=== PATIENT | female | born 1975 | race Caucasian/White ===

== ENCOUNTER → 2017-03-24 | Outpatient (REF) | payer BC | LOC: M LAB REF 10:11 | PROVIDERS: ATTEND Physician Assistant | DX: N39.0 Urinary tract infection, site not specified (principal) ==

== ENCOUNTER → 2017-07-31 | Outpatient (REF) | payer BC | LOC: M LAB REF 16:32 | PROVIDERS: ATTEND Physician Assistant | DX: R30.0 Dysuria (principal) ==

== ENCOUNTER → 2018-06-14 | Outpatient (REF) | payer BC | LOC: M LAB REF 17:49 | DX: N39.0 Urinary tract infection, site not specified (principal) ==

== ENCOUNTER → 2018-11-01 | Outpatient (CLI) | payer OTHER ==
--- NOTE | 2018-11-01 16:00 | REP ---
PA and lateral chest: There are no comparisons. The lung kline are clear. The cardiac size is normal. The genet, mediastinum, and skeletal structures are unremarkable. Impression: Negative PA and lateral chest. Electronically Signed by Armond Garcia MD 11/01/2018 03:51 P
[2018-11-01 16:35] LABS: BASO % 0.4 % (0.0-1.0); EOS % 0.4 % (0.0-3.0); HEMATOCRIT 39.9 % (36.0-47.0); HEMOGLOBIN 13.7 g/dl (12.0-15.5); LYMPH # 1.6 10^3/uL (1.5-4.5); LYMPH % 15.9 % (24.0-44.0); MEAN CORPUSCULAR HEMOGLOBIN 30.6 pg (27.0-33.0); MEAN CORPUSCULAR HGB CONC 34.3 g/dl (32.0-36.5); MEAN CORPUSCULAR VOLUME 89.1 fl (80.0-96.0); MONO # 0.5 10^3/uL (0.0-0.8); MONO % 5.2 % (0.0-5.0); NEUTROPHILS # 7.6 10^3/uL (1.8-7.7); NEUTROPHILS % 77.9 % (36.0-66.0); PLATELET COUNT, AUTOMATED 362 10^3/uL (150-450); RED BLOOD COUNT 4.48 10^6/uL (4.00-5.40); WHITE BLOOD COUNT 9.8 10^3/uL (4.0-10.0)
[2018-11-01 16:59] LABS: ALBUMIN 4.4 GM/DL (3.2-5.2); ALT/SGPT 20 U/L (12-78); BILIRUBIN,TOTAL 0.4 MG/DL (0.2-1.0); BLOOD UREA NITROGEN 10 MG/DL (7-18); CALCIUM LEVEL 9.1 MG/DL (8.5-10.1); CARBON DIOXIDE LEVEL 27 MEQ/L (21-32); CHLORIDE LEVEL 103 MEQ/L (98-107); CREATININE FOR GFR 0.64 MG/DL (0.55-1.30); FREE T4 1.27 NG/DL (0.76-1.46); GLOMERULAR FILTRATION RATE > 60.0 (>58); GLUCOSE, FASTING 81 MG/DL (70-100); POTASSIUM SERUM 4.1 MEQ/L (3.5-5.1); SODIUM LEVEL 139 MEQ/L (136-145); THYROID STIMULATING HORMONE 0.662 uIU/ML (0.358-3.740); TOTAL PROTEIN 7.2 GM/DL (6.4-8.2); VITAMIN B12 LEVEL 986 PG/ML
[2018-11-01 17:00] LABS: FOLATE 13.9 NG/ML
== END ==
LOC: M WUC 14:58
PROVIDERS: ATTEND Physician Assistant
DX: R42 Dizziness and giddiness (principal); J06.9 Acute upper respiratory infection, unspecified

== ENCOUNTER → 2019-10-23 | Outpatient (CLI) | payer OTHER ==
[~2019-10-23] MED LIST: PROHANCE 279.3MG/ML 15ML VIAL (A9576) As Ordered ONE
--- NOTE | 2019-10-23 13:03 | REPVR ---
PROCEDURE INFORMATION: Exam: MR Head Without and With Contrast Exam date and time: 10/23/2019 12:23 PM Age: 43 years old Clinical indication: Patient HX: Hearing loss worse on lt side; Additional info: Snsrnrl hear loss, uni, left ear, w unrestr hear cntra side TECHNIQUE: Imaging protocol: MR of the head without and with intravenous contrast. 3D rendering: MIP and/or 3D reconstructed images were created by the technologist. Contrast material: PROHANCE; Contrast volume: 14 ml; Contrast route: 22G ANGIO; COMPARISON: No relevant prior studies available. FINDINGS: Brain: Examination of the brain demonstrates normal morphology and signal intensity.No acute infarction, masses, midline shift or acute hemorrhage is seen. No acute intracranial abnormality is identified.There is no abnormal diffusion weighted signal intensity to suggest an acute ischemic event.The cortical chambers / white matter interfaces are preserved throughout the brain.Intracranial flow voids are well maintained.Examination of the posterior fossa demonstrates no significant abnormality.On gradient echo imaging, no susceptibility changes are seen to represent parenchymal calcification or degraded blood products. The seventh and eighth nerve complexes are normal in thickness and signal intensity. No discrete mass or abnormal enhancement is seen to suggest vestibular schwannoma or acoustic neuroma. No abnormal contrast enhancement is seen. Ventricles: The ventricular system is not dilated and is appropriate for the patient's age. Bones/joints: Unremarkable. Soft tissues: Unremarkable. Sinuses: Normal as visualized. No acute sinusitis. Mastoid air cells: Normal as visualized. No mastoid effusion. Orbits: Unremarkable. IMPRESSION: 1. No acute infarction, masses or hemorrhage is seen. No acute intracranial abnormality is identified. 2. The seventh and eighth nerve complexes are normal in thickness and signal intensity. No discrete mass or abnormal enhancement is seen to suggest vestibular schwannoma or acoustic neuroma. 3. No abnormal contrast enhancement is seen. Electronically signed by: Deni Vizcarra On 10/23/2019 13:03:19 PM
== END ==
LOC: M RAD 11:20
PROVIDERS: ATTEND Otolaryngology
DX: H90.42 Sensorineural hearing loss, unilateral, left ear, with unrestricted hearing on the contralateral side (principal)
CPT/HCPCS: 70553; A9576

== ENCOUNTER → 2023-01-24 | Outpatient (CLI) | payer OTHER | LOC: M RAD 14:02 | PROVIDERS: ATTEND Internal Medicine Endocrinology, Diabetes & Metabolism | DX: E05.90 Thyrotoxicosis, unspecified without thyrotoxic crisis or storm (principal) | CPT/HCPCS: 78012; A9516 ==

== ENCOUNTER → 2023-02-05 | Outpatient (CLI) | payer OTHER ==
[2023-02-05 16:28] LABS: FREE T4 6.73 NG/DL (0.89-1.76)
[2023-02-05 16:29] LABS: THYROID STIMULATING HORMONE 0.008 uIU/ML (0.55-4.78)
[2023-02-05 17:07] LABS: TOTAL T3 > 800.0 NG/DL (60.0-181.0)
== END ==
LOC: M PLALAB 12:08
PROVIDERS: ATTEND Internal Medicine Endocrinology, Diabetes & Metabolism
DX: E05.00 Thyrotoxicosis with diffuse goiter without thyrotoxic crisis or storm (principal)

== ENCOUNTER → 2023-02-21 | Outpatient (CLI) | payer OTHER ==
[2023-02-21 16:13] LABS: HCG, SERUM QUALITATIVE NEGATIVE (NEGATIVE)
== END ==
LOC: M LAB 15:12
PROVIDERS: ATTEND Internal Medicine Endocrinology, Diabetes & Metabolism
DX: E05.00 Thyrotoxicosis with diffuse goiter without thyrotoxic crisis or storm (principal)

== ENCOUNTER → 2023-05-04 | Outpatient (REF) | payer OTHER ==
[2023-05-04 19:04] LABS: FREE T4 0.23 NG/DL (0.89-1.76); THYROID STIMULATING HORMONE 16.19 uIU/ML (0.55-4.78)
== END ==
LOC: M PLALAB 17:22
PROVIDERS: ATTEND Internal Medicine Endocrinology, Diabetes & Metabolism
DX: E05.00 Thyrotoxicosis with diffuse goiter without thyrotoxic crisis or storm (principal)

== ENCOUNTER → 2023-07-09 | Outpatient (CLI) | payer OTHER ==
[2023-07-10 00:26] LABS: THYROID STIMULATING HORMONE 0.016 uIU/ML (0.55-4.78)
[2023-07-10 00:28] LABS: FREE T4 1.39 NG/DL (0.89-1.76)
== END ==
LOC: M PLALAB 15:24
PROVIDERS: ATTEND Nurse Practitioner Family
DX: E89.0 Postprocedural hypothyroidism (principal)

== ENCOUNTER → 2023-10-08 | Day surgery (SDC) | payer OTHER ==
[~2023-10-08] VITALS: Ht 154.9 cm; Wt 81.4 kg
[~2023-10-08] MED LIST changes: +ACET-907 PO; +LEVO125T4 PO; +LIDOCAINE 2% 100MG/5ML SDV (FOR ANES.) As Ordered ONE; +METO1TAB87 PO; +NS 1,000 ML IV ONE; +OMEP-173 PO; -PROHANCE 279.3MG/ML 15ML VIAL (A9576) As Ordered ONE; +fentaNYL 100 MCG/2 ML INJECTION As Ordered ONE; +propofoL 500 MG/50 ML VIAL As Ordered ONE
[2023-10-08 14:09] VITALS: BP 133/62; O2SAT 98
== END | disposition home or self-care (01) ==
LOC: M SDC 10:44 → M OPP 10:44
PROVIDERS: ATTEND Internal Medicine Gastroenterology
DX: Z12.11 Encounter for screening for malignant neoplasm of colon (principal); K64.4 Residual hemorrhoidal skin tags; K64.8 Other hemorrhoids; K22.4 Dyskinesia of esophagus; K21.00 Gastro-esophageal reflux disease with esophagitis, without bleeding; K29.70 Gastritis, unspecified, without bleeding; K44.9 Diaphragmatic hernia without obstruction or gangrene; R13.10 Dysphagia, unspecified; Z79.1 Long term (current) use of non-steroidal anti-inflammatories (NSAID); Z79.890 Hormone replacement therapy; Z79.899 Other long term (current) drug therapy; Z88.0 Allergy status to penicillin; Z88.1 Allergy status to other antibiotic agents
CPT/HCPCS: 43239; 45378; 88305; J3010

== ENCOUNTER → 2023-11-12 | Outpatient (CLI) | payer OTHER ==
[~2023-11-12] MED LIST changes: -LIDOCAINE 2% 100MG/5ML SDV (FOR ANES.) As Ordered ONE; -NS 1,000 ML IV ONE; -fentaNYL 100 MCG/2 ML INJECTION As Ordered ONE; -propofoL 500 MG/50 ML VIAL As Ordered ONE
[2023-11-12 18:02] LABS: THYROID STIMULATING HORMONE 0.046 uIU/ML (0.55-4.78)
[2023-11-12 18:03] LABS: FREE T4 1.38 NG/DL (0.89-1.76)
== END ==
LOC: M PLALAB 15:35
PROVIDERS: ATTEND Nurse Practitioner Family
DX: E89.0 Postprocedural hypothyroidism (principal)

== ENCOUNTER → 2024-02-14 | Outpatient (CLI) | payer OTHER ==
[2024-02-14 12:02] LABS: FREE T4 1.34 NG/DL (0.89-1.76)
[2024-02-14 12:03] LABS: THYROID STIMULATING HORMONE 0.249 uIU/ML (0.55-4.78)
== END ==
LOC: M PLALAB 08:37
PROVIDERS: ATTEND Nurse Practitioner Family
DX: E89.0 Postprocedural hypothyroidism (principal)

== ENCOUNTER → 2024-06-30 | Outpatient (CLI) | payer OTHER ==
[2024-06-30 16:44] LABS: FREE T4 1.72 NG/DL (0.89-1.76); THYROID STIMULATING HORMONE 0.31 uIU/ML (0.55-4.78)
== END ==
LOC: M PLALAB 13:02
PROVIDERS: ATTEND Nurse Practitioner Family
DX: E89.0 Postprocedural hypothyroidism (principal)

== ENCOUNTER → 2024-06-30 | Outpatient (CLI) | payer OTHER ==
[2024-06-30 16:13] LABS: BASO # 0.1 10^3/uL (0.0-0.2); BASO % 1.1 % (0.0-1.0); EOS # 0.3 10^3/uL (0.0-0.5); EOS % 4.4 % (0.0-3.0); HEMATOCRIT 32.7 % (36.0-47.0); HEMOGLOBIN 9.8 g/dl (12.0-15.5); LYMPH # 1.7 10^3/uL (1.5-5.0); LYMPH % 23.4 % (24.0-44.0); MEAN CORPUSCULAR HEMOGLOBIN 24.4 pg (27.0-33.0); MEAN CORPUSCULAR VOLUME 81.3 fl (80.0-96.0); MONO # 0.7 10^3/uL (0.0-0.8); MONO % 8.9 % (2.0-8.0); NEUTROPHILS # 4.6 10^3/uL (1.5-8.5); NEUTROPHILS % 61.9 % (36.0-66.0); PLATELET COUNT, AUTOMATED 377 10^3/uL (150-450); RED BLOOD COUNT 4.02 10^6/uL (4.00-5.40); WHITE BLOOD COUNT 7.4 10^3/uL (4.0-10.0)
[2024-06-30 16:16] LABS: URIC ACID 5.1 MG/DL (3.1-7.8)
[2024-06-30 16:19] LABS: ALBUMIN 3.9 G/DL (3.2-5.2); ALKALINE PHOSPHATASE 92 U/L (46-116); ALT/SGPT 23 U/L (7.0-40); AST/SGOT 17 U/L (<34); BILIRUBIN,TOTAL 0.3 MG/DL (0.3-1.2); BLOOD UREA NITROGEN 23 MG/DL (9-23); CALCIUM LEVEL 9.5 MG/DL (8.5-10.1); CARBON DIOXIDE LEVEL 28 MMOL/L (20-31); CHLORIDE LEVEL 110 MMOL/L (98-107); CREATININE FOR GFR 0.59 MG/DL (0.55-1.30); FOLLICLE STIMULATING HORMONE 29.2 mIU/ML; GLOMERULAR FILTRATION RATE > 60.0 (>58); GLUCOSE, FASTING 83 MG/DL (60-100); POTASSIUM SERUM 4.4 MMOL/L (3.5-5.1); SODIUM LEVEL 142 MMOL/L (136-145); TOTAL 25(OH) VITAMIN D 15.1 NG/ML (20.0-100.0); TOTAL PROTEIN 7.3 G/DL (5.7-8.2)
[2024-06-30 16:20] LABS: LUTEINIZING HORMONE 25.4 mIU/ML; THYROID STIMULATING HORMONE 0.308 uIU/ML (0.55-4.78)
[2024-06-30 16:21] LABS: FREE T4 1.67 NG/DL (0.89-1.76); TESTOSTERONE 34 NG/DL (14-76)
== END ==
LOC: M PLALAB 13:03
PROVIDERS: ATTEND Family Medicine
DX: I10 Essential (primary) hypertension (principal); K21.00 Gastro-esophageal reflux disease with esophagitis, without bleeding; E89.0 Postprocedural hypothyroidism; R53.83 Other fatigue; N92.0 Excessive and frequent menstruation with regular cycle

== ENCOUNTER 2024-09-01 11:09 | Emergency (ER) | payer OTHER ==
[~2024-09-01] VITALS: Ht 157.5 cm; Wt 81.6 kg
[2024-09-01 11:45] LABS: BASO # 0.1 10^3/uL (0.0-0.2); BASO % 0.8 % (0.0-1.0); EOS # 0.2 10^3/uL (0.0-0.5); HEMATOCRIT 29.1 % (36.0-47.0); HEMOGLOBIN 8.8 g/dl (12.0-15.5); LYMPH # 1.5 10^3/uL (1.5-5.0); LYMPH % 19.9 % (24.0-44.0); MEAN CORPUSCULAR HEMOGLOBIN 22.9 pg (27.0-33.0); MEAN CORPUSCULAR HGB CONC 30.2 g/dl (32.0-36.5); MEAN CORPUSCULAR VOLUME 75.6 fl (80.0-96.0); MONO # 0.6 10^3/uL (0.0-0.8); MONO % 7.8 % (2.0-8.0); NEUTROPHILS # 5.2 10^3/uL (1.5-8.5); NEUTROPHILS % 68.1 % (36.0-66.0); PLATELET COUNT, AUTOMATED 363 10^3/uL (150-450); RED BLOOD COUNT 3.85 10^6/uL (4.00-5.40); WHITE BLOOD COUNT 7.6 10^3/uL (4.0-10.0)
[2024-09-01 12:10] LABS: CK-MB VALUE MASS 1.2 NG/ML (<3.6)
[2024-09-01 12:13] LABS: CPK CREATINE PHOSPHOKINASE 99 U/L (34-145); MB/CK RELATIVE INDEX 1.21 (< OR =4)
[2024-09-01 12:14] LABS: BLOOD UREA NITROGEN 23 MG/DL (9-23); CARBON DIOXIDE LEVEL 24 MMOL/L (20-31); CHLORIDE LEVEL 107 MMOL/L (98-107); CREATININE FOR GFR 0.59 MG/DL (0.55-1.30); GLOMERULAR FILTRATION RATE > 60.0 (>58); GLUCOSE, FASTING 160 MG/DL (60-100); POTASSIUM SERUM 3.8 MMOL/L (3.5-5.1); SODIUM LEVEL 141 MMOL/L (136-145)
[2024-09-01] MEDS: ASPIRIN 81MG CHEW TABLET PO ONE (12:28)
[2024-09-01 12:42] LABS: IRON (FE) 18 UG/DL (50-170); TOTAL IRON BINDING CAPACITY 362 UG/DL (250-425)
[2024-09-01 12:45] LABS: FERRITIN 4.4 NG/ML (7.3-270.7); VITAMIN B12 LEVEL 952 PG/ML (211-911)
[2024-09-01 13:12] LABS: CK-MB VALUE MASS 1.6 NG/ML (<3.6)
[2024-09-01 13:13] LABS: CPK CREATINE PHOSPHOKINASE 90 U/L (34-145); MB/CK RELATIVE INDEX 1.77 (< OR =4)
[2024-09-01 13:23] LABS: FOLATE 11.69 NG/ML (>5.4)
[2024-09-01] MEDS ORDERED: ISOVUE-370 76% 100ML VIAL As Ordered ONE (13:50)
[2024-09-01] MEDS ORDERED: FERR325T3 PO (14:31)
[2024-09-01 14:43] VITALS: BP 139/65; TEMP 97.8; O2SAT 96
== END 2024-09-01 14:47 | disposition home or self-care (01) ==
LOC: EDBD 11:09 → M ED 11:09
DX: R07.89 Other chest pain (principal); D50.9 Iron deficiency anemia, unspecified; N92.4 Excessive bleeding in the premenopausal period; K21.9 Gastro-esophageal reflux disease without esophagitis; Z79.899 Other long term (current) drug therapy; Z88.0 Allergy status to penicillin
CPT/HCPCS: 71045; 71275; 80048; 82550; 82553; 82607; 82728; 82746; 83550; 84484; 85025; 93005; 93041; 94760; 99285; Q9967

== ENCOUNTER → 2025-01-13 | Outpatient (CLI) | payer OTHER ==
[~2025-01-13] MED LIST changes: +FERR325T3 PO
[2025-01-13 18:05] LABS: FREE T4 1.47 NG/DL (0.89-1.76); THYROID STIMULATING HORMONE 0.048 uIU/ML (0.55-4.78)
== END ==
LOC: M PLALAB 14:34
PROVIDERS: ATTEND Nurse Practitioner Family
DX: E89.0 Postprocedural hypothyroidism (principal)

== ENCOUNTER → 2025-01-19 | Outpatient (CLI) | payer OTHER ==
[2025-01-19 17:05] LABS: BASO # 0.1 10^3/uL (0.0-0.2); BASO % 0.8 % (0.0-1.0); EOS # 0.3 10^3/uL (0.0-0.5); EOS % 3.5 % (0.0-3.0); HEMATOCRIT 43.5 % (36.0-47.0); HEMOGLOBIN 14.3 g/dl (12.0-15.5); LYMPH # 1.8 10^3/uL (1.5-5.0); LYMPH % 25.3 % (24.0-44.0); MEAN CORPUSCULAR HEMOGLOBIN 29.4 pg (27.0-33.0); MEAN CORPUSCULAR HGB CONC 32.9 g/dl (32.0-36.5); MEAN CORPUSCULAR VOLUME 89.3 fl (80.0-96.0); MONO # 0.5 10^3/uL (0.0-0.8); MONO % 6.8 % (2.0-8.0); NEUTROPHILS # 4.6 10^3/uL (1.5-8.5); NEUTROPHILS % 63.2 % (36.0-66.0); PLATELET COUNT, AUTOMATED 286 10^3/uL (150-450); RED BLOOD COUNT 4.87 10^6/uL (4.00-5.40); WHITE BLOOD COUNT 7.2 10^3/uL (4.0-10.0)
[2025-01-19 17:29] LABS: PERCENT SATURATION 20.3 % (13.2-45.0)
[2025-01-19 17:30] LABS: FERRITIN 31.9 NG/ML (7.3-270.7); INR 0.95; PARTIAL THROMBOPLASTIN TIME 25.6 SECONDS (24.8-34.2)
== END ==
LOC: M PLALAB 15:47
PROVIDERS: ATTEND Family Medicine
DX: D50.8 Other iron deficiency anemias (principal)

== ENCOUNTER → 2025-06-08 | Outpatient (CLI) | payer MEDICAID, OTHER ==
[2025-06-08 18:55] LABS: FREE T4 1.51 NG/DL (0.89-1.76)
== END ==
LOC: M PLALAB 16:56
PROVIDERS: ATTEND Nurse Practitioner Family
DX: E89.0 Postprocedural hypothyroidism (principal)